=== PATIENT | male | born 1975 | race Two or more races ===

== ENCOUNTER → 2024-08-31 | Outpatient (CLI) | payer MEDICAID, SELFPAY ==
--- NOTE | 2024-08-31 10:56 | XR_ITS ---
Examination: PA lateral chest 2 views TECHNIQUE: Upright PA lateral chest 2 views Exam date and time: August 31, 2024 at 1214 hours INDICATIONS: Chest pain this month FINDINGS: Minor rounding left ventricle Pulmonary fibrosis pattern in the lung taveras No lobar pneumonia or pulmonary edema IMPRESSION: Findings most consistent with mild to moderate pulmonary fibrosis Consider follow-up high-resolution CT chest without contrast
--- NOTE | 2024-08-31 10:56 | XR_ITS ---
Examination: Knee bilateral, 4 views Technique: Knee lateral each knee 4 views Date and time of exam: August 31, 2024 1214 hours INDICATIONS: Bilateral knee pain more severe the last week On the left 2011 FINDINGS: Moderate osteopenia Moderate right knee tricompartment osteoarthritis no fracture Total left knee arthroplasty Satisfactory alignment No loosening of the prosthetic components IMPRESSION: Moderate right knee tricompartment osteoarthritis Total left knee arthroplasty with satisfactory alignment
--- NOTE | 2024-08-31 10:56 | XR_ITS ---
Examination: Forearm, right, 2 views. Technique: Forearm, AP, lateral 2 views Date and time of exam: August 31, 2024 at 1214 hours INDICATIONS: Left forearm pain beginning 3 months ago FINDINGS: No fracture or dislocation No opaque foreign body IMPRESSION: No fracture or dislocation
== END | disposition home or self-care (01) ==
LOC: CDIM 10:42
PROVIDERS: PCP Nurse Practitioner Family; Referring Provider Nurse Practitioner Family; Visit Provider Nurse Practitioner Family
DX: M17.0 Bilateral primary osteoarthritis of knee (principal); Z96.652 Presence of left artificial knee joint; J84.10 Pulmonary fibrosis, unspecified; M79.632 Pain in left forearm
CPT/HCPCS: 71046; 73090; 73560

== ENCOUNTER → 2024-10-09 | Outpatient (CLI) | payer MEDICAID, SELFPAY ==
--- NOTE | 2024-10-09 14:00 | XR_ITS ---
Examination: CT chest, without intravenous contrast. Sagittal and coronal 2-D reconstructions. Exam date and time: October 09, 2024 1453 hours Comparison September 05, 2021 INDICATIONS: Shortness of breath beginning 6 weeks ago CTDI:vol (mGy) 14.5 DLP: (mGycm) 197 Technique: Multiple 3.0 mm axial sections of the chest to been obtained. Bone and lung density settings are obtained. Sagittal and coronal 2-D reconstructions have been obtained. Low dose protocols were performed. One or more of the following dose reduction techniques were used; automated exposure control, adjustment of the mA and/or KV according to patient size, use of iterative reconstruction technique. Findings: No thoracic aortic aneurysm dilatation Pulmonary artery segments are not enlarged No paratracheal tracheobronchial or bronchopulmonary adenopathy Accentuation interstitial markings throughout the lungs No grayson pulmonary edema No pleural disease No visualized liver or splenic lesion Contracted gallbladder No pancreatic mass Moderate osteopenia IMPRESSION: Interstitial increased markings throughout the lungs, differential would include pulmonary fibrosis, bilateral pneumonia not excluded, clinical correlation advised
== END | disposition home or self-care (01) ==
LOC: CCTX 13:54
PROVIDERS: PCP Nurse Practitioner Family; Referring Provider Nurse Practitioner Family; Visit Provider Nurse Practitioner Family
DX: R91.8 Other nonspecific abnormal finding of lung field (principal)
CPT/HCPCS: 71250

== ENCOUNTER 2024-12-04 16:58 | Emergency (ER) | payer MEDICAID, SELFPAY ==
[2024-12-04 17:21] VITALS: BP 171/83; PULSE 67; RESP 18; TEMP 36.6; O2SAT 96; BMI 29.2
--- NOTE | 2024-12-04 17:34 | XR_ITS ---
Examination: Abdomen sonogram, Limited Date and time of exam: November 26, 2024 1811 hrs. Indications: Epigastric pain beginning 2 days ago, vomiting today Technique: Real-time kamara scale transabdominal sonographic images of the upper abdomen obtained. Findings: Negative for gallstones Gallbladder wall 0.3 cm no edema Common bile duct 0.3 cm Pancreas obscured by bowel gas Liver 14.4 cm fatty infiltration irregular contour Normal hepatopedal portal venous flow IVC is obscured by bowel gas Impression: Normal gallbladder Normal common bile duct Fatty liver suspect primary hepatocellular disease
--- NOTE | 2024-12-04 17:35 | PD.EDRME ---
Rapid Medical Screening Exam [facility] Arrival date/time: 12/04/24 16:58 49-year-old male with a history of hyperlipidemia, type 2 diabetes presents to the emergency room with a chief complaint of 10 out of 10 epigastric and right upper quadrant abdominal pain and tenderness, vomiting, nausea x 2 days. I have greeted and performed a focused initial assessment of this patient. A comprehensive ED assessment and evaluation of the patient, analysis of all test results, and completion of the medical decision making process will be conducted by additional ED providers. Chief Complaint: Abdominal Pain Vital signs: Vital Signs Temperature 97.9 F 12/04/24 17:21 Pulse Rate 67 12/04/24 17:21 Respiratory Rate 18 12/04/24 17:21 Blood Pressure 171/83 H 12/04/24 17:21 Pulse Oximetry (%) 96 12/04/24 17:21 Oxygen Delivery Method Room Air 12/04/24 17:21 Vital signs reviewed by provider: Yes
[2024-12-04 18:00] LABS: Basophils % (Auto) 0 % (0-2.5); Eosinophils % (Auto) 0 % (0-10); Hematocrit 43.2 % (41.0-53.0); Hemoglobin 14.6 g/dL (13.5-16.0); Immature Granulocytes % (Auto) 1 % (0-0); Immature Granulocytes Auto 0.08 Thou/mm3 (0.00-0.00); Lymphocytes # (Auto) 1.6 Thou/mm3 (1.0-4.8); Lymphocytes % (Auto) 11 % (10-50); Mean Corpuscular HGB Conc 33.8 g/dl (31.0-37.0); Mean Corpuscular Hemoglobin 31.7 pg (25.0-35.0); Mean Corpuscular Volume 94 fL (80-100); Monocytes # (Auto) 0.6 Thou/mm3 (0.0-0.8); Monocytes % (Auto) 4 % (0-12); Neutrophils # (Auto) 13.2 Thou/mm3 (1.8-7.7); Neutrophils % (Auto) 85 % (37-80); Nucleated Red Blood Cell % 0 /100 WBC (0); Platelet Count 232 Thou/mm3 (140-440); RDW Standard Deviation 46.2 fL (35.1-43.9); Red Blood Count 4.61 Miln/mm3 (4.50-5.90); White Blood Count 15.5 Thou/mm3 (3.8-10.6)
[2024-12-04 18:22] LABS: Alanine Aminotransferase 14 U/L (10-49); Albumin, Serum 4.9 gm/dL (3.5-5.0); Alkaline Phosphatase 62 U/L (46-116); Anion Gap 10 (7-16); Aspartate Amino Transferase 14 U/L (0-34); BUN/Creatinine Ratio 11 Ratio (12-20); Bilirubin,Total 0.3 mg/dL (0.3-1.2); Blood Urea Nitrogen 10 mg/dL (9-23); Calcium 9.6 mg/dL (8.3-10.6); Calcium (Corrected) 9.6 mg/dL (8.5-10.1); Carbon Dioxide 26.1 mMol/L (20.0-31.0); Chloride 106 mMol/L (98-107); Creatinine (Component) 0.9 mg/dL (0.6-1.3); Estimated Creatinine Clearance 102.2 mL/min (>60); Globulin 2.4 gm/dL (2.3-3.5); Glucose 131 mg/dL (74-106); Lipase 58 U/L (12-53); Osmolality,Calculated 284 (275-295); Potassium 4.4 mMol/L (3.4-5.1); Sodium 142 mMol/L (136-145); Total Protein 7.3 gm/dL (5.7-8.2); eGFR > 60 See Note
[2024-12-04] MEDS: ONDANSETRON ODT 4 MG TABRAP PO (18:44)
[2024-12-04 19:24] LABS: Collection Type, Urine Clean Catch
[2024-12-04 19:35] LABS: Bilirubin,Urine Negative (Negative); Blood,Urine 2+ (Negative); Clarity,Urine Clear (Clear/Hazy); Color,Urine Lt-Yellow (Lt Yel-Yel); Glucose, Urine Negative (Negative); Ketones,Urine Negative (Negative); Leukocyte Esterase,Urine Negative (Negative); Nitrite,Urine Negative (Negative); Protein,Urine Negative (Neg - Trace); RBC,Urine 8 /hpf (0-3); Specific Gravity,Urine 1.022 (1.001-1.035); Squamous Epithelial Cell,Urine 1 /hpf (0-5); Urobilinogen,Urine Negative mg/dL (0.0-1.0); WBC,Urine 1 /hpf (0-5)
[2024-12-04 19:37] VITALS: BP 158/94; PULSE 74; RESP 19; TEMP 36.8; O2SAT 97
[2024-12-04 20:58] VITALS: BP 171/82; PULSE 79; RESP 18; TEMP 37; O2SAT 97
--- NOTE | 2024-12-04 21:30 | EDNOTE_ITS ---
ED Abdominal Pain RME/HPI General Chief Complaint: Abdominal Pain Stated complaint: Abdominal pain, vomiting today Time seen by provider: 12/04/24 19:23 Arrival date/time: 12/04/24 16:58 This is a 49-year-old male significant past medical history of hyperlipidemia, type 2 diabetes presents emergency department with complaints of epigastric burning, right upper quadrant abdominal pain x 1 day. Patient reported pain 10 out of 10 upon arrival. Source: patient Limitations: no limitations RME / HPI RME / HPI narrative: 12/04/24 16:58 49-year-old male with a history of hyperlipidemia, type 2 diabetes presents to the emergency room with a chief complaint of 10 out of 10 epigastric and right upper quadrant abdominal pain and tenderness, vomiting, nausea x 2 days. I have greeted and performed a focused initial assessment of this patient. A comprehensive ED assessment and evaluation of the patient, analysis of all test results, and completion of the medical decision making process will be conducted by additional ED providers. Related Data Home Medications ?Medication ?Instructions ?Recorded ?Confirmed bupropion HCl 75 mg tablet 75 mg PO DAILY 09/05/21 indomethacin 50 mg capsule 50 mg PO TID 09/05/2109/05 lovastatin 20 mg tablet 20 mg PO QPM 09/05/21 metformin 500 mg tablet 500 mg PO BID 09/05/2109/05 Previous Rx's ?Medication ?Instructions ?Recorded promethazine-DM 6.25 mg-15 mg/5 mL 5 ml PO Q6H PRN cou gh #473 mL 08/27/21 oral syrup omeprazole 40 mg capsule,delayed 40 mg PO QDAY #30 cap s 12/04/24 release Allergies Allergy/AdvReac Type Severity Reaction Status Date / Time No Known Allergies Allergy Verified 12/04/24 17:04 Review of Systems Review of Systems Systems Reviewed: All systems reviewed, normal except as documented Narrative Review of Systems: Gen: No fever, no chills, no weight loss EYES: No discharge, no visual changes, no pain HEENT: No ear pain, no congestion, no sore throat PULM: No shortness of breath, no cough, no congestion CV: No chest pain, no dyspnea on exertion, no palpitations GI: No nausea, no vomiting, no diarrhea, no pain, no constipation : No frequency, no urgency,? no dysuria Musc/skel: No joint pain, no back pain Skin: No rash? Psyc: No hallucinations, no depression Heme/Lymph: No easy bleeding or bruising tendencies Neuro: No weakness, no headache ED Exam General Limitations: Present no limitations General appearance: Present alert and in no apparent distress Head Head exam: Present atraumatic Eye Eye exam: Present normal appearance, PERRL and EOMI ENT ENT exam: Present normal exam, normal oropharynx and mucous membranes moist Neck Neck exam: Present normal inspection, full ROM and trachea midline Chest Chest inspection: Present normal inspection and symmetric chest wall rise Respiratory Respiratory exam: Present normal lung sounds bilaterally Cardiovascular Cardiovascular exam: Present regular rate, normal rhythm and normal heart sounds Abdominal Exam Abdominal exam: Present soft and normal bowel sounds Extremities Exam Extremities exam: Present normal inspection and full ROM Back Exam Back exam: Present normal inspection and full ROM Neurological Exam Neurological exam: Present alert, oriented X3 and CN II-XII intact Psychiatric Psychiatric exam: Present normal affect and normal mood Skin Skin exam: Present warm, dry, intact and normal color Course Quality Measures none Orders Category Date Time Status US gall bladder Stat Exams 12/04/24 17:34 Completed CBC Stat Lab 12/04/24 17:42 Completed CMP [Comprehensive Metabolic Panel] Stat Lab 12/04/24 17:42 Completed Lipase Stat Lab 12/04/24 17:42 Completed UA [Urinalysis] Stat Lab 12/04/24 19:10 Completed Urine Culture Stat Lab 12/04/24 19:10 Completed Lidocaine 2% Viscous [Xylocaine 2% Viscous] Med 12/04/24 21:35 Discontinued 15 ml PO X1 ONE Ondansetron Odt [Zofran Odt] Med 12/04/24 17:34 Discontinued 4 mg PO X1 ONE mg Hyd/Al Hyd/Alfredo Susp [Maalox Susp] Med 12/04/24 21:35 Discontinued 30 ml PO X1 ONE Vital Signs Vital signs: Vital Signs Temperature 97.9 F 12/04/24 17:21 Pulse Rate 67 12/04/24 17:21 Respiratory Rate 18 12/04/24 17:21 Blood Pressure 171/83 H 12/04/24 17:21 Pulse Oximetry (%) 96 12/04/24 17:21 Oxygen Delivery Method Room Air 12/04/24 17:21 Abdominal Pain MDM MDM Narrative MDM Narrative:: 49-year-old male presents the emergency department with epigastrium pain for 3 days. He did have a bout of nausea, No fever. Patient reports he has had a history of a gastritis, had a pending GI referral however he did not attend. Reports his symptoms have improved after medication was given here in the ER. Patient did have a mild leukocytosis most likely due to to vomiting. No electrolyte imbalance. No acute renal failure negative troponin, negative troponin ultrasound negative for cholelithiasis. Noted mild hepatocellular disease Advised patient will discharge home with close follow-up with PCP. Patient data External records reviewed:: [facility] previous records Clinical information provided by:: patient Social determinants that could affect healthcare access:: none Patient has the following chronic illnesses:: yes htn ,dm How is presenting disease/condition affected by chronic disease/condition?: uneffected by Evaluation data The following diagnostics were reviewed and interpreted by me:: lab results and radiology exam(s) Lab and/or radiology exams considered but not ordered:: no Interpretation Summary: Examination: Abdomen sonogram, Limited Date and time of exam: November 26, 2024 1811 hrs. Indications: Epigastric pain beginning 2 days ago, vomiting today Technique: Real-time kamara scale transabdominal sonographic images of the upper abdomen obtained. Findings: Negative for gallstones Gallbladder wall 0.3 cm no edema Common bile duct 0.3 cm Pancreas obscured by bowel gas Liver 14.4 cm fatty infiltration irregular contour Normal hepatopedal portal venous flow IVC is obscured by bowel gas Impression: Normal gallbladder Normal common bile duct Fatty liver suspect primary hepatocellular disease Medications / Prescriptions Medications or Prescriptions considered but not ordered:: No Medication administrations:: Medication Administration History Discontinued Medications Al Hydrox/Mg Hydrox/Simethicone (Mg Hyd/Al Hyd/Alfredo (Maalox Reg) Susp 30 Ml Udc) 30 ml PO X1 ONE Stop: 12/04/24 21:36 Last Admin: 12/04/24 21:48 Dose: 30 ml Documented By: LALY Lidocaine HCl (Lidocaine Viscous 2% 15 Ml Udc) 15 ml PO X1 ONE Stop: 12/04/24 21:36 Last Admin: 12/04/24 21:48 Dose: 15 ml Documented By: LALY Ondansetron HCl (Ondansetron Odt 4 Mg Tabrap) 4 mg PO X1 ONE; Protocol Stop: 12/04/24 17:35 Last Admin: 12/04/24 18:44 Dose: 4 mg Documented By: BD All medications administered and effective Consultations Consultation(s) initiated? (list below): No Diagnosis Differential diagnosis abdominal pain: abdominal pain, constipation, gastroenteritis, pancreatitis and other (Cholelithiasis, liver cirrhosis, gerd) Most likely diagnosis given after review of the tests above:: Gastritis Admission Indicated Admission indicated?: not indicated Admission Request Was there a request for admission?: No Disposition Plan Disposition Plan: Discharge Discharge Attestation Discharge Attestation: The patient and all family members were given an opportunity to ask questions and understood the discharge instructions. Discharge instructions specifically effects, indications for sooner follow up or return to the emergency department, and the expected course of current diagnosis. Patient condition: Stable Discharge Plan Plan Patient Disposition: HOME (Self Care) Patient condition on transfer: Stable Prescriptions/Referrals Prescriptions/Med Rec: New omeprazole 40 mg capsule,delayed release(DR/EC) 40 mg PO QDAY Qty: 30 0RF No Action promethazine-DM 6.25-15 mg/5 mL syrup 5 ml PO Q6H PRN (Reason: cough) Qty: 473 0RF bupropion HCl 75 mg Tablet 75 mg PO DAILY metformin 500 mg Tablet 500 mg PO BID indomethacin 50 mg Capsule 50 mg PO TID lovastatin 20 mg Tablet 20 mg PO QPM [facility] [facility] [Primary Care Provider[facility] - In 1 week Problem List Clinical Impression: Abdominal pain, Epigastric abdominal pain Patient/Caregiver Discharge Instructions Discharge Activity: activity as tolerated Education Materials: ED Epigastric Pain (Uncertain Cause) Additional Instructions: Por favor derrick un seguimiento con martin m?dico de cabecera. Por favor realice katherine prueba de H. pylori de forma ambulatoria. [place] el medicamento seg?n las indicaciones. Los medicamentos enviados a la farmacia y el paciente deben tomarlos seg?n las indicaciones. S?lo me recetaron un tratamiento corto para jairo si ayudaba con los s?ntomas. Evite comer alimentos grasos, picantes, menta, chocolate o comidas copiosas, acostarse despu?s de comer, usar prendas ajustadas o realizar actividades que puedan aumentar la presi?n en el abdomen. Regrese al departamento de emergencias si los s?ntomas empeoran o cualquier condici?n. Please follow-up with your primary doctor. Please have an H. pylori test outpatient basis. Take the medication as directed. Medication sent to pharmacy and pt should take as directed. only prescribed a short course to see if it helps symptoms. Please avoid eating fatty foods, spicy foods, mint, chocolate or large meals, lying down after eating, wearing tight garments or engaging in activities which would increase the pressure in the abdomen. Return to the emergency department this any worsening symptoms any condition. Print Language: [place] Stand Alone Forms: Misti Award Info., Patient Portal Info Letter PA/[employer] [facility] RESEARCHER Supervising Physician PATY/KRISTOPHER Supervising Physician: Dr Monge
[2024-12-04] MEDS: MG HYD/AL HYD/SIME (Maalox Reg) SUSP 30 ML UDC PO (21:48)
[2024-12-04] MEDS: LIDOCAINE VISCOUS 2% 15 ML UDC PO (21:48)
== END 2024-12-04 21:55 | disposition home or self-care (01) ==
PROVIDERS: Nurse Practitioner Family; Emergency Provider Emergency Medicine; PCP Nurse Practitioner Family
DX: R10.13 Epigastric pain (principal); D72.829 Elevated white blood cell count, unspecified; K76.0 Fatty (change of) liver, not elsewhere classified; E11.9 Type 2 diabetes mellitus without complications; I10 Essential (primary) hypertension; E78.5 Hyperlipidemia, unspecified
CPT/HCPCS: 36415; 76705; 80053; 81001; 83690; 85025; 87086; 99284; J3490; Q0162; A9270

== ENCOUNTER → 2024-12-16 | Outpatient (CLI) | payer MEDICAID, SELFPAY ==
--- NOTE | 2024-12-16 10:30 | XR_ITS ---
Exam: MRI knee without contrast, right Date and time of exam: December 16, 2024 1220 hrs. Indications: Right knee pain 20 years Technique: Multiple axial, coronal, and sagittal sections on the knee have been obtained. T2-Weighted sagittal, fat-suppressed images, TR 3,500, TE 62, T2 weighted coronal fat-saturated images, TR 3,500, TE 62 Proton density sagittal sections, TR 1800, TE 31. T-1 weighted coronal images, TR 524, TE 13.0 Findings: Medial meniscus anterior horn horizontal linear tear. Medial meniscus, body oblique linear tear. Posterior horn medial meniscus peripheral horizontal linear tear. Lateral meniscus anterior horn horizontal linear tear Lateral meniscus, body is intact Posterior horn lateral meniscus is intact Anterior cruciate ligament significantly attenuated Posterior cruciate ligament appears intact. Knee effusion is small. Quadriceps and patellar tendons appear intact. There is no evidence of tendinosis. Inflammatory change or fracture of Hoffa's fat pad is not seen. Medial patellar facet demonstrates severe thinning. Lateral patellar facet cartilage demonstrates severe thinning. Trochlear cartilage demonstrates severe thinning. Marrow signal adequate by. Medial collateral ligament appears intact. No meniscocapsular separation is seen. Illiotibial band and fibular collateral ligament are intact. Biceps femoris tendons appear intact. Medial femoral condylar articular cartilage demonstrates severe thinning. Lateral femoral condylar articular cartilage demonstratesmoderate thinning. Tibial plateau cartilage demonstrates severe medial thinning. Impression: Medial lateral meniscus tears Significant attenuation anterior cruciate ligament Severe thinning cartilage patellofemoral and medial joint spaces
== END | disposition home or self-care (01) ==
PROVIDERS: Referring Provider Nurse Practitioner Family; Visit Provider Nurse Practitioner Family
DX: S83.281A Other tear of lateral meniscus, current injury, right knee, initial encounter (principal); S83.241A Other tear of medial meniscus, current injury, right knee, initial encounter; X58.XXXA Exposure to other specified factors, initial encounter; M25.861 Other specified joint disorders, right knee
CPT/HCPCS: 73721